=== PATIENT | female | born 1975 ===

== ENCOUNTER 2024-04-15 09:45 | Emergency (ER) | payer OTHER ==
[2024-04-15] MEDS ORDERED: Lidocaine/Epineph/Tetracaine 3 ML Syringe TOP ONE (09:49)
[2024-04-15] MEDS: Lidocaine 1% with EPINEPHrine 1:100,000 10 ML MDV INJECT ONE (09:55)
[2024-04-15] MEDS: Ketorolac 30 MG/ML SDV IM ONE (10:03)
[2024-04-15] MEDS: Acetaminophen 500 MG Tab PO ONE (10:03)
[2024-04-15] MEDS: Diphtheria,Pertussis(Acell),Tetanus Vaccine 0.5 ML Syringe IM ONE (11:04)
== END 2024-04-15 11:21 | disposition home or self-care (01) ==
LOC: MW.ED 09:45
DX: S09.90XA Unspecified injury of head, initial encounter (principal); S01.81XA Laceration without foreign body of other part of head, initial encounter; S66.911A Strain of unspecified muscle, fascia and tendon at wrist and hand level, right hand, initial encounter; S63.501A Unspecified sprain of right wrist, initial encounter; W18.30XA Fall on same level, unspecified, initial encounter
CPT/HCPCS: 12001; 73100; 73120; 96372; 99283; A9270; J1885; J3490